=== PATIENT | female | born 1970 | race Asian ===

== ENCOUNTER 2025-08-21 16:09 | Emergency (ER) | payer OTHER ==
[~2025-08-21] VITALS: Ht 147.3 cm; Wt 44.0 kg
[2025-08-21 16:20] VITALS: BP 143/65; PULSE 80; RESP 18; TEMP 98.2; O2SAT 99
[2025-08-21] MEDS ORDERED: KETOROLAC TROMETHAMINE 30 MG/ML VIAL IM ONE (16:45)
[2025-08-21] MEDS ORDERED: LIDOCAINE 1% 10 ML VIAL ID ONE (16:45)
[2025-08-21] MEDS: IBUPROFEN 600 MG TABLET PO ONE (16:47)
[2025-08-21] MEDS: PERTUSS(ACELL),DIPH,TET/PF 0.5 ML SYRINGE [ADULT] IM. ONE (16:51)
[2025-08-21] MEDS: BACITRACIN 0.9 GM PACKET OINTMENT TP ONE (16:55)
== END 2025-08-21 17:05 | disposition home or self-care (01) ==
LOC: EMS 16:09
DX: S61.210A Laceration without foreign body of right index finger without damage to nail, initial encounter (principal); Z98.890 Other specified postprocedural states; W45.8XXA Other foreign body or object entering through skin, initial encounter; Y93.89 Activity, other specified; Y92.89 Other specified places as the place of occurrence of the external cause; Y99.8 Other external cause status
CPT/HCPCS: 90471; 90715; 99283; 99285